=== PATIENT | male | born 1975 | race Caucasian/White ===

== ENCOUNTER 2018-04-20 19:47 | Emergency (ER) | payer OTHER ==
--- NOTE | 2018-04-20 20:10 | EDPHY ---
H & P Stated Complaint: rknee injury hyper ext previous knee repair Time Seen by Provider: 04/20/18 20:06 HPI/ROS: HPI CHIEF COMPLAINT: Right knee pain and swelling. HISTORY OF PRESENT ILLNESS: Otherwise healthy 42-year-old male no significant medical history was skiing today at [place], he was going over bumps and landed on his right knee felt pain. He now comes emergency room with increasing pain is unable to bear weight on his right knee. Has swelling present. Denies any other areas of injury. Denies focal numbness or tingling. Denies weakness pain and swelling to the right knee. Pain with range of motion and well as pain with bearing weight. Past Medical History: Denies significant medical history Past Surgical History: Multiple right knee surgeries including ACL PCL, patella fracture, tibial plateau. Social History: Denies drugs alcohol tobacco. Family History: Noncontributory ROS REVIEW OF SYSTEMS: 10 Systems were reviewed and negative with the exception of the elements mentioned in the history of present illness. Exam Constitutional appears well nontoxic no acute distress, triage nursing summary reviewed, vital signs reviewed, awake/alert. Eyes normal conjunctivae and sclera, EOMI, PERRLA. HENT normal inspection, atraumatic, moist mucus membranes, no epistaxis, neck supple/ no meningismus, no raccoon eyes. Respiratory clear to auscultation bilaterally, normal breath sounds, no respiratory distress, no wheezing. Cardiovascular rate normal, regular rhythm, no murmur, no edema, distal pulses normal. Gastrointestinal soft, non-tender, no rebound, no guarding, normal bowel sounds, no distension, no pulsatile mass. Genitourinary no CVA tenderness. Musculoskeletal right lower extremity: Good distal pulse, good cap refill, joint swelling of the right knee. Limited range of motion due to pain. no midline vertebral tenderness, full range of motion, no calf swelling, no tenderness of extremities, no meningismus, good pulses, neurovascularly intact. Skin pink, warm, & dry, no rash, skin atraumatic. Neurologic awake, alert and oriented x 3, AAOx3, moves all 4 extremities equally, motor intact, sensory intact, CN II-XII intact, normal cerebellar, normal vision, normal speech. Psychiatric normal mood/affect. Heme/Lymph/Immune no lymphadenopathy. Differential Diagnosis: Includes but is not limited to in a particular order: Knee sprain, knee contusion, tibial plateau fracture, fracture, ligamentous injury, meniscal injury Medical Decision Making: Plan for this patient x-ray right knee. Ice pack. Patient took ibuprofen prior to arrival. Re-evaluation: X-ray reviewed shows a tibial plateau fracture. Right leg is neurovascular intact distally good distal pulse. Given the tibial plateau fracture will consult Orthopedics. Most likely knee immobilizer crutches. Pain control. I spoke with Orthopedics at 9:[address] Sosa, he would like patient placed in knee immobilizer, crutches, pain control. CT scan without contrast of the right knee for surgical purposes he is requesting this. Plan for CT and then plan for discharge home with knee immobilizer and crutches. Recommend anti-inflammatories, [place] for severe pain, elevation, ice, follow up with Orthopedics outpatient. Dr. Sosa Patient is placed in knee immobilizer and crutches. He is neurovascularly intact. There is no evidence of compartment syndrome. He does have a swollen knee without joint effusion present. Limited range of motion due to pain. Patient will need to follow up with Orthopedics on Sunday. Call for appointment tomorrow morning. I did offer the patient pain medicine however he states he has some at home. CT was performed due to surgical planning. X-ray shows a tibial plateau fracture. Patient is neurovascularly intact distally is comfortable going home. Crutches and knee immobilizer. Ice, anti-inflammatories. Source: Patient - Personal History Current Tetanus/Diphtheria Vaccine: Yes Current Tetanus Diphtheria and Acellular Pertussis (TDAP): Yes - Medical/Surgical History Hx Asthma: No Hx Chronic Respiratory Disease: No Hx Diabetes: No Hx Cardiac Disease: No Hx Renal Disease: No Hx Cirrhosis: No Hx Alcoholism: No Hx HIV/AIDS: No Hx Splenectomy or Spleen Trauma: No Other PMH: r acl pcl collat / lat repair. fx patella. [place] fx r. l fx tib fib - Social History Smoking Status: Never smoked Constitutional: Initial Vital Signs Temperature (C) 37 C 04/20/18 19:52 Heart Rate 86 04/20/18 19:52 Respiratory Rate 18 04/20/18 19:52 Blood Pressure 126/90 H 04/20/18 19:52 O2 Sat (%) 97 04/20/18 19:52 O2 Delivery Mode Room Air Allergies/Adverse Reactions: cat dander Allergy (Verified 04/20/18 19:51) Home Medications: Medication Instructions Recorded NK [No Known Home Meds] 04/20/18 Medical Decision Making - Diagnostics Imaging Results: Imaging Impressions Knee X-Ray 04/20/18 20:08 Impression: Vertical fracture with intra-articular extension involving the lateral tibial plateau. Prior ACL reconstruction. Moderate knee joint effusion. Departure - Departure Disposition: Home, Routine, Self-Care Clinical Impression: Tibial plateau fracture, Joint effusion Condition: Fair Instructions: Knee Sprain (ED), Knee Immobilizer (ED) Additional Instructions: 1. Ice. 2. Anti-inflammatory pain medicine for mild pain 3. Follow up with Orthopedics 4. Return emergency room if worsening pain questions or concerns. Referrals: Wendi Smith MD [Primary Care Provider] - As per Instructions Richy Sosa MD [Medical Doctor] - As per Instructions
[2018-04-20 21:43] VITALS: BP 129/80
== END 2018-04-20 21:51 | disposition home or self-care (01) ==
DX: S82.142A Displaced bicondylar fracture of left tibia, initial encounter for closed fracture (principal); X50.9XXA Other and unspecified overexertion or strenuous movements or postures, initial encounter; Y93.23 Activity, snow (alpine) (downhill) skiing, snowboarding, sledding, tobogganing and snow tubing; Y99.9 Unspecified external cause status; Y92.838 Other recreation area as the place of occurrence of the external cause
CPT/HCPCS: L1830